=== PATIENT | male | born 1990 | race Caucasian/White ===

== ENCOUNTER 2016-04-18 05:50 | Emergency (ER) | payer BC ==
[2016-04-18] MEDS ORDERED: PROPARACAINE 0.5% 15 ML OPHT DROP ONE (05:56)
[2016-04-18] MEDS ORDERED: FLUORESCEIN SODIUM 1 MG STRIP OP ONE (05:56)
[2016-04-18 05:57] VITALS: BP 123/80; PULSE 94; RESP 14; TEMP 97.7; O2SAT 96
[2016-04-18] MEDS ORDERED: OFLOXACIN 0.3% SOLN PREPACK OPHT.BTL TAKEHOME ONE (06:09)
--- NOTE | 2016-04-18 06:12 | EDPHY ---
H & P Stated Complaint: left eye redness and irritation Time Seen by Provider: 04/18/16 06:04 HPI/ROS: CHIEF COMPLAINT: [place] HISTORY OF PRESENT ILLNESS: The patient is a 26-year-old man who is visiting from [place] who comes to the emergency department stating that he woke up this morning with swollen red left eye. He had similar symptoms 2 months ago and was diagnosed with conjunctivitis. He does were contacts. He has not had a fever. He has not had any upper respiratory symptoms. REVIEW OF SYSTEMS: Constitutional: denies: chills, fever, recent illness, recent injury EENTM: See HPI Respiratory: denies: cough, shortness of breath Cardiac: denies: chest pain, irregular heart rate, lightheadedness, palpitations Gastrointestinal/Abdominal: denies: abdominal pain, diarrhea, nausea, vomiting, blood streaked stools Genitourinary: denies: dysuria, frequency, hematuria, pain Musculoskeletal: denies: joint pain, muscle pain Skin: denies: lesions, rash, jaundice, bruising Neurological: denies: headache, numbness, paresthesia, tingling, dizziness, weakness Hematologic/Lymphatic: denies: blood clots, easy bleeding, easy bruising Immunologic/allergic: denies: HIV/AIDS, transplant EXAM: GENERAL: Well-appearing, well-nourished and in no acute distress. HEAD: Atraumatic, normocephalic. EYES: Left eye with conjunctival injection and mild lid edema. No visible foreign body or abrasion. Vision intact and at baseline ENT: TMs normal, nares patent, oropharynx clear without exudates. Moist mucous membranes. NECK: Normal range of motion, supple without lymphadenopathy or JVD. LUNGS: Breath sounds clear to auscultation bilaterally and equal. No wheezes rales or rhonchi. HEART: Regular rate and rhythm without murmurs, rubs or gallops. ABDOMEN: Soft, nontender, normoactive bowel sounds. No guarding, no rebound. No masses appreciated. BACK: No CVA tenderness, no spinal tenderness, step-offs or deformities EXTREMITIES: Normal range of motion, no pitting or edema. No clubbing or cyanosis. NEUROLOGICAL: Cranial nerves II through XII grossly intact. Normal speech, normal gait. 5/5 strength, normal movement in all extremities, normal sensation PSYCH: Normal mood, normal affect. SKIN: Warm, dry, normal turgor, no visible rashes or lesions. Source: Patient Exam Limitations: No limitations - Personal History Current Tetanus/Diphtheria Vaccine: Unsure Current Tetanus Diphtheria and Acellular Pertussis (TDAP): Unsure - Medical/Surgical History Hx Asthma: No Hx Chronic Respiratory Disease: No Hx Diabetes: No Hx Cardiac Disease: No Hx Renal Disease: No Hx Cirrhosis: No Hx Alcoholism: No Hx HIV/AIDS: No Hx Splenectomy or Spleen Trauma: No Other PMH: PMH: none. PSH: left ankle and foot surgery - Family History Significant Family History: No pertinent family hx - Social History Smoking Status: Never smoked Alcohol Use: Sober Drug Use: None Constitutional: Initial Vital Signs Temperature (C) 36.5 C 04/18/16 05:54 Heart Rate 94 04/18/16 05:54 Respiratory Rate 14 04/18/16 05:54 Blood Pressure 123/80 H 04/18/16 05:54 O2 Sat (%) 96 04/18/16 05:54 O2 Delivery Mode Room Air Allergies/Adverse Reactions: No Known Allergies Allergy (Unverified 04/18/16 05:54) Home Medications: Medication Instructions Recorded NK [No Known Home Meds] 04/18/16 Medical Decision Making ED Course/Re-evaluation: I will treat the patient with Ocuflox. We discussed treatment and follow-up as well as indications for returning. The patient understands and agrees with this plan. He declines any further workup or testing at this time. He will not were contacts during the infection. Differential Diagnosis: Partial list of the Differential diagnosis considered include but were not limited to; conjunctivitis, foreign body, abrasion and although unlikely based on the history and physical exam, I also considered glaucoma, retinal detachment , hemorrhage, ischemia. I discussed these differential diagnoses and the plan with the patient as well as the usual and expected course. The patient understands that the diagnosis is provisional and that in medicine we are not always correct and that further workup is often warranted. Usual and customary warnings were given. All of the patient's questions were answered. The patient was instructed to return to the emergency department should the symptoms at all worsen or return, otherwise to followup with the physician as we discussed. - Data Points Medications Given: Discontinued Medications Ofloxacin (Ocuflox 0.3% Opht Drops Prepack) 1 btl JEREMÍAS VIDAL ONE Stop: 04/18/16 06:10 Last Admin: 04/18/16 06:15 Dose: 1 btl Departure - Departure Disposition: Home, Routine, Self-Care Clinical Impression: Acute conjunctivitis of left eye Qualifiers: Acute conjunctivitis type: unspecified Qualifier Code: (H10.32) Unspecified acute conjunctivitis, left eye Condition: Good Instructions: Conjunctivitis (ED), Ofloxacin (Into the eye) Additional Instructions: 2 drops in your affected eye every 4 hours for 4 days. Referrals: OUT OF STATE,. [Unknown] - As per Instructions
== END 2016-04-18 06:20 | disposition home or self-care (01) ==
DX: H10.32 Unspecified acute conjunctivitis, left eye (principal)